=== PATIENT | female | born 1975 | race Hispanic/Latino ===

== ENCOUNTER 2018-09-26 18:11 | Inpatient (IN) | payer OTHER ==
[~2018-09-26] VITALS: Ht 156.2 cm; Wt 102.1 kg
[2018-09-26] MEDS ORDERED: LACTATED RINGERS 1000ML 1,000 ML IV PRN (18:19)
[2018-09-26] MEDS ORDERED: OXYTOCIN-LR 20 UNITS/1000 ML 1,000 ML IV SCH ×2 (18:30→19:15)
[2018-09-26] MEDS ORDERED: FERR1TAB22 PO ×2 (18:49)
[2018-09-26] MEDS ORDERED: PREN-64 PO ×2 (18:49)
[2018-09-26] MEDS ORDERED: GLYB5TAB8 PO ×2 (18:49)
[2018-09-26] MEDS ORDERED: LACTATED RINGERS 1000ML 1,000 ML IV ONE (19:07)
[2018-09-26 19:47] LABS: APPEARANCE,URINE Clear (CLEAR); BILIRUBIN,URINE Negative (NEGATIVE); COLOR,URINE Yellow (YELLOW); GLUCOSE, URINE (UA) Negative (NEGATIVE); KETONES,URINE Negative (NEGATIVE); LEUKOCYTE ESTERASE ,URINE Negative (NEGATIVE); NITRATE,URINE Negative (NEGATIVE); OCCULT BLOOD,URINE Trace (NEGATIVE); PROTEIN,URINE POS 2+ (NEGATIVE); UROBILINOGEN,URINE 0.2 mg/dL (0.2-1.0)
[2018-09-26 19:48] LABS: HEMATOCRIT 36.8 % (36-48); MEAN CORPUSCULAR HEMOGLOBIN 28.3 pg (27.0-33.0); MEAN CORPUSCULAR HGB CONC 33.1 g/dL (32.0-36.0); MEAN CORPUSCULAR VOLUME 85.5 fL (79-99); NUCLEATED RED BLOOD CELLS 0.1 % (0.0-0.19); PLATELET COUNT (AUTO) 264 K/uL (130-400); RED CELL DISTRIBUTION WIDTH 14.3 % (11.0-15.5); WHITE BLOOD COUNT (AUTO) 9.9 K/uL (4.8-10.8)
[2018-09-26 20:01] VITALS: BP 132/70
[2018-09-26 20:43] LABS: BACTERIA,URINE Rare /HPF (None Seen); RBC,URINE None Seen /HPF (0-1); WBC,URINE 0-1 /HPF (0-1)
[2018-09-27] MEDS ORDERED: LACTATED RINGERS 1000ML 1,000 ML IV ONE (02:36)
[2018-09-27] MEDS ORDERED: OXYTOCIN 10 USP UNITS/ML ONE (02:37)
[2018-09-27] MEDS ORDERED: OXYTOCIN 10 USP UNITS/ML 20 UNIT in LACTATED RINGERS 1000ML 1,000 ML IV SCH (03:00)
[2018-09-28 07:35] LABS: HEPATITIS Bs ANTIGEN SCREEN P Negative (Negative)
== END 2018-09-27 09:32 | disposition home or self-care (01) | DRG 833 ==
LOC: LDH 18:11
PROVIDERS: ADMIT Obstetrics & Gynecology; ATTEND Obstetrics & Gynecology
DX: O24.419 Gestational diabetes mellitus in pregnancy, unspecified control (principal); Z3A.37 37 weeks gestation of pregnancy
CPT/HCPCS: 36415; 81001; 82947; 85027; 86592; 86850; 86900; 86901; 87340; 96360; 96361; J2590; J7120

== ENCOUNTER 2018-09-28 08:04 | Inpatient (IN) | payer OTHER ==
[~2018-09-28] VITALS: Ht 157.5 cm; Wt 100.2 kg
[~2018-09-28 08:04] MED LIST: FERR1TAB22 PO; GLYB5TAB8 PO; PREN-64 PO
[2018-09-28] MEDS ORDERED: LACTATED RINGERS 1000ML 1,000 ML IV PRN (09:15)
[2018-09-28] MEDS ORDERED: OXYTOCIN 10 USP UNITS/ML 20 UNIT in LACTATED RINGERS 1000ML 1,000 ML IV SCH (09:15)
[2018-09-28] MEDS ORDERED: LACTATED RINGERS 1000ML 2,000 ML IV ONE (09:18)
[2018-09-28] MEDS ORDERED: OXYTOCIN 10 USP UNITS/ML ONE ×2 (09:18→15:39)
[2018-09-28] MEDS ORDERED: OXYTOCIN-LR 20 UNITS/1000 ML 1,000 ML IV SCH ×2 (09:30→16:15)
[2018-09-28] MEDS ORDERED: MEPERIDINE-PF 50 MG/ML SYG IVP SCH (13:30)
[2018-09-28] MEDS ORDERED: PROMETHAZINE HCL 25 MG/ML 1ML AMPULE IM SCH (13:30)
[2018-09-28] MEDS ORDERED: PROMETHAZINE HCL 25 MG/ML 1ML AMPULE IM ONE (13:35)
[2018-09-28] MEDS ORDERED: MEPERIDINE-PF 50 MG/ML SYG ONE (13:35)
[2018-09-28] MEDS ORDERED: LACTATED RINGERS 1000ML 1,000 ML IV ONE (15:39)
[2018-09-28] MEDS ORDERED: LANOLIN 30GM OINTMENT TP PRN (16:15)
[2018-09-28] MEDS ORDERED: MEASLES/MUMPS/RUBELLA VACCINE, LIVE 0.5 ML/VIAL SQ PRN (16:15)
[2018-09-28] MEDS ORDERED: ACETAMINOPHEN 325 MG TAB PO PRN (16:15)
[2018-09-28] MEDS ORDERED: DIPH,PERTUSS(ACELL),TET VAC/PF 0.5 ML VIAL IM PRN (16:15)
[2018-09-28] MEDS ORDERED: WITCH HAZEL 1 PAD TP PRN (16:15)
[2018-09-28] MEDS ORDERED: HYDROCODONE/ACETAMINOPHEN 5/325 MG TAB PO PRN (16:15)
[2018-09-28] MEDS ORDERED: BENZOCAINE/LANOLIN/ALOE VERA 60 ML AEROSOL TP PRN (16:15)
[2018-09-28] MEDS: IBUPROFEN 800 MG TAB PO PRN ×2 (16:55→23:52)
[2018-09-28 17:19] VITALS: BP 130/78
[2018-09-28 19:42] VITALS: BP 123/62
[2018-09-28] MEDS: DOCUSATE SODIUM 100 MG CAP PO SCH (20:45)
[2018-09-28 23:45] VITALS: BP 109/57
[2018-09-29 04:00] VITALS: BP 105/56
[2018-09-29 05:51] LABS: MEAN CORPUSCULAR HEMOGLOBIN 29.3 pg (27.0-33.0); MEAN CORPUSCULAR HGB CONC 33.9 g/dL (32.0-36.0); MEAN CORPUSCULAR VOLUME 86.4 fL (79-99); NUCLEATED RED BLOOD CELLS 0.1 % (0.0-0.19); PLATELET COUNT (AUTO) 266 K/uL (130-400); RED BLOOD CELL COUNT(AUTO) 3.59 MIL/uL (4.00-5.50); RED CELL DISTRIBUTION WIDTH 14.6 % (11.0-15.5); WHITE BLOOD COUNT (AUTO) 12.9 K/uL (4.8-10.8)
[2018-09-29 07:38] VITALS: BP 110/62
[2018-09-29] MEDS: DOCUSATE SODIUM 100 MG CAP PO SCH (08:22)
[2018-09-29] MEDS: IBUPROFEN 800 MG TAB PO PRN ×2 (08:23→16:57)
[2018-09-29 11:23] VITALS: BP 123/74
[2018-09-29 15:26] VITALS: BP 112/63
== END 2018-09-29 17:10 | disposition home or self-care (01) | DRG 807 ==
LOC: LDH 08:04 → OBSVTOIN 08:04 → WSH 17:17
PROVIDERS: ADMIT Obstetrics & Gynecology; ATTEND Obstetrics & Gynecology
PROC: 10E0XZZ Delivery of Products of Conception, External Approach (ICD-10-PCS; principal; 2018-09-28)
PROC: 3E02340 Introduction of Influenza Vaccine into Muscle, Percutaneous Approach (ICD-10-PCS; 2018-09-28)
PROC: 3E0234Z Introduction of Serum, Toxoid and Vaccine into Muscle, Percutaneous Approach (ICD-10-PCS; 2018-09-28)
DX: O66.0 Obstructed labor due to shoulder dystocia (principal); Z37.0 Single live birth; O24.429 Gestational diabetes mellitus in childbirth, unspecified control; Z3A.38 38 weeks gestation of pregnancy; Z23 Encounter for immunization
CPT/HCPCS: 36415; 85027; 86850; 86900; 86901; 90715; A4351; J2175; J2550; J2590; J7120; Q2038